=== PATIENT | male | born 1965 | race Caucasian/White ===

== ENCOUNTER 2021-04-29 06:52 | Emergency (ER) | payer BC ==
--- NOTE | 2021-04-29 07:39 | EDM.PDOC ---
ED HPI GENERAL MEDICAL PROBLEM - General Chief Complaint: ENT Problem Stated Complaint: NOSE BLEED Time Seen by Provider: 04/29/21 07:29 - History of Present Illness INITIAL COMMENTS - FREE TEXT/NARRATIVE: 56-year-old male presents the emergency room with a nosebleed. This is out of the left side. This started short time ago. The patient did have a nosebleed yesterday. Because of his nosebleeds yesterday the patient did hold his aspirin this morning. The patient is not on anticoagulation. He is treated for hypertension usually takes lisinopril 40 mg daily and he is taking his lisinopril thus far today. Patient denies any other complaints he is not have any breathing difficulties shortness of breath chest pain or chest pressure. - Related Data Allergies Allergy/AdvReac Type Severity Reaction Status Date / Time No Known Allergies Allergy Verified 04/29/21 07:23 Home Meds: Home Meds Chlorthalidone 12.5 mg PO DAILY #15 tab 04/29/21 [Rx] Cromolyn Sodium [Nasal Allergy Luckey] 2 spray NASBOTH DAILY 04/29/21 [History] lisinopriL [Lisinopril] 40 mg PO DAILY 04/29/21 [History] ED ROS ENT - Review of Systems Review Of Systems: See Below Constitutional: Reports: No Symptoms HEENT: Reports: Nosebleed Respiratory: Reports: No Symptoms Cardiovascular: Reports: No Symptoms GI/Abdominal: Reports: No Symptoms ED EXAM, ENT - Physical Exam Exam: See Below Exam Limited By: No Limitations General Appearance: Alert, No Apparent Distress, Other (Patient has a homemade packing in his left naris and he is holding a 4 x 4 underneath this.) Eye Exam: Bilateral Eye: Normal Inspection Nose: Other (Had the patient clear all clot from his nose large clot was removed from the left side. I attempted direct visualization the anterior septal and nasal mucosal region and cannot identify bleeder. This was attempted several times) Mouth/Throat: Normal Inspection, Normal Gums, Normal Lips, Normal Oropharynx, Normal Teeth, Other (He has had some blood in the posterior pharynx) Head: Atraumatic, Normocephalic Neck: Normal Inspection, Supple, Non-Tender. No: Lymphadenopathy (L), Lymphadenopathy (R) Respiratory/Chest: No Respiratory Distress, Lungs Clear, Normal Breath Sounds Cardiovascular: Regular Rate, Rhythm, No Edema, No Murmur Course - Vital Signs Last Recorded V/S: Last Vital Signs Temp 36.4 C 04/29/21 07:17 Pulse 83 04/29/21 07:17 Resp 18 04/29/21 07:17 BP 173/110 H 04/29/21 07:17 Pulse Ox 97 04/29/21 07:17 - Orders/Labs/Meds Orders: Active Orders 24 hr Category Date Time Status Tranexamic Acid [Cyklokapron] Med 04/29/21 07:45 Active 1,000 mg .XX ONETIME Medication Orders Tranexamic Acid (Tranexamic Acid 1,000 Mg/10 Ml Amp) 1,000 mg .XX ONETIME MARIZA Last Admin: 04/29/21 07:53 Dose: 1,000 mg Documented by: MARIA FERNANDA Labs: Laboratory Tests 04/29/21 04/29/21 04/29/21 Range/Units 08:02 08:02 08:02 WBC 7.17 (4.23-9.07) K/mm3 RBC 4.74 (4.63-6.08) M/mm3 Hgb 15.6 (13.7-17.5) gm/dl Hct 46.3 (40.1-51.0) % MCV 97.7 H (79.0-92.2) fl MCH 32.9 H (25.7-32.2) pg MCHC 33.7 (32.2-35.5) g/dl RDW Std Deviation 43.7 (35.1-43.9) fL Plt Count 203 (163-337) K/mm3 MPV 10.7 (9.4-12.3) fl Neut % (Auto) 53.6 (34.0-67.9) % Lymph % (Auto) 33.6 (21.8-53.1) % Labette % (Auto) 8.4 (5.3-12.2) % Eos % (Auto) 3.8 (0.8-7.0) Baso % (Auto) 0.3 (0.1-1.2) % Neut # (Auto) 3.85 (1.78-5.38) K/mm3 Lymph # (Auto) 2.41 (1.32-3.57) K/mm3 Labette # (Auto) 0.60 (0.30-0.82) K/mm3 Eos # (Auto) 0.27 (0.04-0.54) K/mm3 Baso # (Auto) 0.02 (0.01-0.08) K/mm3 PT 10.5 (9.7-12.0) SECONDS INR 0.98 APTT 27.1 (21.7-31.4) SECONDS Sodium (136-145) mEq/L Potassium (3.5-5.1) mEq/L Chloride (98-107) mEq/L Carbon Dioxide (21-32) mEq/L Anion Gap (5-15) BUN (7-18) mg/dL Creatinine (0.7-1.3) mg/dL Est Cr Clr Drug Dosing mL/min Estimated GFR (MDRD) (>60) mL/min BUN/Creatinine Ratio (14-18) Glucose (70-99) mg/dL Calcium (8.5-10.1) mg/dL Total Bilirubin (0.2-1.0) mg/dL AST (15-37) U/L ALT (16-63) U/L Alkaline Phosphatase (46-116) U/L Total Protein (6.4-8.2) g/dl Albumin (3.4-5.0) g/dl Globulin gm/dL Albumin/Globulin Ratio (1-2) Blood Type A POSITIVE Gel Antibody Screen Negative 04/29/21 Range/Units 08:02 WBC (4.23-9.07) K/mm3 RBC (4.63-6.08) M/mm3 Hgb (13.7-17.5) gm/dl Hct (40.1-51.0) % MCV (79.0-92.2) fl MCH (25.7-32.2) pg MCHC (32.2-35.5) g/dl RDW Std Deviation (35.1-43.9) fL Plt Count (163-337) K/mm3 MPV (9.4-12.3) fl Neut % (Auto) (34.0-67.9) % Lymph % (Auto) (21.8-53.1) % Labette % (Auto) (5.3-12.2) % Eos % (Auto) (0.8-7.0) Baso % (Auto) (0.1-1.2) % Neut # (Auto) (1.78-5.38) K/mm3 Lymph # (Auto) (1.32-3.57) K/mm3 Labette # (Auto) (0.30-0.82) K/mm3 Eos # (Auto) (0.04-0.54) K/mm3 Baso # (Auto) (0.01-0.08) K/mm3 PT (9.7-12.0) SECONDS INR APTT (21.7-31.4) SECONDS Sodium 142 (136-145) mEq/L Potassium 4.2 (3.5-5.1) mEq/L Chloride 106 (98-107) mEq/L Carbon Dioxide 27 (21-32) mEq/L Anion Gap 13.2 (5-15) BUN 18 (7-18) mg/dL Creatinine 1.1 (0.7-1.3) mg/dL Est Cr Clr Drug Dosing 82.72 mL/min Estimated GFR (MDRD) > 60 (>60) mL/min BUN/Creatinine Ratio 16.4 (14-18) Glucose 96 (70-99) mg/dL Calcium 8.2 L (8.5-10.1) mg/dL Total Bilirubin 1.0 (0.2-1.0) mg/dL AST 24 (15-37) U/L ALT 67 H (16-63) U/L Alkaline Phosphatase 67 (46-116) U/L Total Protein 6.9 (6.4-8.2) g/dl Albumin 3.6 (3.4-5.0) g/dl Globulin 3.3 gm/dL Albumin/Globulin Ratio 1.1 (1-2) Blood Type Gel Antibody Screen Meds: Medications Generic Name Dose Route Start Last Admin Trade Name Freq PRN Reason Stop Dose Admin Tranexamic Acid 1,000 mg 04/29/21 07:45 04/29/21 07:53 Tranexamic Acid 1,000 Mg/10 Ml Amp .XX 1,000 mg ONETIME MARIZA Administration Discontinued Medications Generic Name Dose Route Start Last Admin Trade Name Freq PRN Reason Stop Dose Admin Chlorthalidone 12.5 mg 04/29/21 12:25 Chlorthalidone 25 Mg Tab PO 04/29/21 12:26 ONETIME ONE Hydralazine HCl 2.5 mg 04/29/21 09:25 04/29/21 09:45 Hydralazine 20 Mg/Ml Sdv IVPUSH 04/29/21 09:26 2.5 mg ONETIME ONE Administration Hydralazine HCl 2.5 mg 04/29/21 10:04 04/29/21 10:10 Hydralazine 20 Mg/Ml Sdv IVPUSH 04/29/21 10:05 2.5 mg ONETIME ONE Administration Lidocaine HCl 10 ml 04/29/21 07:43 04/29/21 07:54 Lidocaine 1% 10 Ml Mdv INJECT 04/29/21 07:44 10 ml ONETIME ONE Administration Oxymetazoline HCl 2 ml 04/29/21 07:43 04/29/21 07:54 Oxymetazoline 0.05% Nasal Luckey 30 Ml Bottle .XX 04/29/21 07:44 2 ml ONETIME ONE Administration - Re-Assessments/Exams Free Text/Narrative Re-Assessment/Exam: 04/29/21 08:08 Presents to the emergency room with a nosebleed. He is little hypertensive systolics in the 170s upon arrival. We tried to clear the cotton hold direct pressure he continued to bleed. Patient normally takes aspirin and this was held today. Despite several attempts I cannot visualize the bleeder. 2 cc of Afrin 1% lidocaine and TXA were mixed in a solution these were saturated into cotton balls and placed in the left naris. At this time the and then in about 7 minutes the patient has had good relief no longer bleeding we will leave these in place a little bit longer. 04/29/21 09:00 The patient continues to do well the cotton soaked in the lidocaine TXA Afrin mixture were removed patient is not having any active bleeding at this time. We will continue to watch monitor blood pressure strongly considering addition of blood pressure medication at this point 04/29/21 10:05 Roughly 30 minutes ago the patient developed bleeding again after he got up and went to the restroom. He was retreated with lidocaine TXA and Afrin. He is doing well with this still in place. His blood pressure stayed slightly elevated he was given 2.5 mg of hydralazine with minimal change in his blood pressure at this is redosed at this time. 04/29/21 12:24 Patient is doing okay at this time anticipate discharge soon. We will start him on chlorthalidone low-dose. He will hold his aspirin. The patient had his TXA lidocaine Afrin system removed and then he promptly started bleeding. A 5.5 rapid Rhino was placed and the patient has done well with this. His blood pressure is staying elevated most recent is 163/101 we will start on low-dose chlorthalidone. Departure - Departure Time of Disposition: 12:26 Disposition: Home, Self-Care 01 Clinical Impression: Epistaxis, Hypertension - Discharge Information Prescriptions: Chlorthalidone 12.5 mg PO DAILY #15 tab Instructions: Nosebleed, Adult, [id number] Referrals: PCP,None [Primary Care Provider] - Forms: ED Department Discharge, ED Return to Work/School Form Additional Instructions: Return to the emergency room with any questions problems or worsening symptoms. Return if your nose starts bleeding heavily again. It is expected that you can have a drop here and there. Keep nasal packing in place for minimum of 48 hours. Follow-up in the clinic on Tuesday to have this reassessed you may also return to the emergency room for this. You have been started on chlorthalidone this is to help your blood pressure medicine, that you are already taking, work better. It is essential that your new healthcare providers keep an eye on your potassium as it can make this go too low. Your first dose was given here in the emergency room start this tomorrow. The prescription for this was sent electronically to [facility] in the [employer] [facility]. Sepsis Event Note (ED) - Evaluation Sepsis Screening Result: No Definite Risk - Focused Exam Vital Signs: Vital Signs Temp Pulse Resp BP Pulse Ox 04/29/21 07:17 36.4 C 83 18 173/110 H 97 - My Orders Last 24 Hours: My Active Orders 04/29/21 07:45 Tranexamic Acid [Cyklokapron] 1,000 mg .XX ONETIME - Assessment/Plan Last 24 Hours: My Active Orders 04/29/21 07:45 Tranexamic Acid [Cyklokapron] 1,000 mg .XX ONETIME
[2021-04-29] MEDS ORDERED: Lidocaine 1% 10 ML MDV INJECT ONE (07:43)
[2021-04-29] MEDS ORDERED: Oxymetazoline 0.05% Nasal Spray 30 ML Bottle ONE (07:43)
[2021-04-29] MEDS ORDERED: hydrALAZINE 20 MG/ML SDV IVPUSH ONE ×2 (09:25→10:04)
[2021-04-29] MEDS ORDERED: Chlorthalidone 25 MG Tab PO ONE (12:25)
== END 2021-04-29 13:00 | disposition home or self-care (01) ==
LOC: JD.ED 06:52
DX: R04.0 Epistaxis (principal); I10 Essential (primary) hypertension; Z79.899 Other long term (current) drug therapy
CPT/HCPCS: 30903; 36415; 80053; 85025; 85610; 85730; 86850; 86900; 86901; 96374; 99283; A9270; J0360; 30901

== ENCOUNTER 2022-06-06 10:07 | Emergency (ER) | payer BC ==
[2022-06-06] MEDS ORDERED: Sodium Chloride 0.9% 10 ML Syringe FLUSH PRN ×2 (10:27→11:21)
[2022-06-06] MEDS ORDERED: Lactated Ringers 1,000 ML IV ONE (10:47)
[2022-06-06] MEDS ORDERED: Iopamidol 755 Mg/ML 100 ML Bottle IVPUSH ONE (11:21)
[2022-06-06] MEDS ORDERED: Sodium Chloride 0.9% 100 ML IV SCH (11:30)
[2022-06-06] MEDS ORDERED: Heparin Sodium 5,000 Units/ML Vial IVPUSH ONE (11:37)
[2022-06-06] MEDS ORDERED: Heparin Sodium/D5W 25,000 UNITS/500 ML BAG IV SCH (12:45)
== END 2022-06-06 13:10 ==
LOC: JD.ED 10:07
DX: I26.02 Saddle embolus of pulmonary artery with acute cor pulmonale (principal); D68.51 Activated protein C resistance; I10 Essential (primary) hypertension; Z72.0 Tobacco use; Z79.899 Other long term (current) drug therapy; Z79.82 Long term (current) use of aspirin
CPT/HCPCS: 36415; 71045; 71275; 80053; 83880; 84484; 85025; 85610; 93005; 96374; 96376; 99285; J1644; J3490; Q9967; 93010; 99284

== ENCOUNTER 2023-04-14 18:12 | Emergency (ER) | payer BC ==
[2023-04-14 19:20] LABS: BASOPHILS PERCENT AUTO 0.4 % (0.0-1.0); EOSINOPHILS ABSOLUTE AUTO 0.3 K/mm3 (0.0-0.4); EOSINOPHILS PERCENT AUTO 3.3 % (0.0-6.0); HEMATOCRIT 43.8 % (42.0-52.0); IMMATURE GRAN ABSOLUTE AUTO 0.03 K/mm3 (0.00-0.05); IMMATURE GRAN PERCENT AUTO 0.3 % (0.0-0.4); LYMPHOCYTES ABSOLUTE AUTO 2.8 K/mm3 (1.0-4.8); LYMPHOCYTES PERCENT AUTO 31.5 % (24.0-44.0); MEAN CORPUSCULAR HEMOGLOBIN 32.7 pg (28.0-32.0); MEAN CORPUSCULAR HGB CONC 34.2 g/dl (32.0-36.0); MEAN CORPUSCULAR VOLUME 95.4 fl (83.0-99.0); MEAN PLATELET VOLUME 10.4 fl (9.4-12.4); MONOCYTES ABSOLUTE AUTO 0.7 K/mm3 (0.0-0.8); MONOCYTES PERCENT AUTO 7.5 % (0.0-8.0); NEUTROPHILS ABSOLUTE AUTO 5.1 K/mm3 (1.8-7.7); PLATELET COUNT,PLT 215 K/mm3 (150-400); RED BLOOD CELL COUNT 4.59 M/mm3 (4.52-5.90); WHITE BLOOD CELL COUNT,WBC 8.96 K/mm3 (3.9-11.3)
[2023-04-14 19:43] LABS: ALBUMIN 3.4 g/dl (3.4-5.0); ANION GAP 12.5 (5-15); BILIRUBIN TOTAL 0.7 mg/dL (0.2-1.0); BUN/CREATININE RATIO 16.2 (14-18); C-REACTIVE PROTEIN 0.6 mg/dL (<1.0); CALCIUM 8.6 mg/dL (8.5-10.1); CREATININE 1.3 mg/dL (0.7-1.3); EST CRCL DRUG DOSING (CG) 69.14 mL/min; MAGNESIUM 1.9 mg/dL (1.8-2.4); POTASSIUM,K 3.5 mEq/L (3.5-5.1); PROTEIN TOTAL,TP 6.9 g/dl (6.4-8.2)
[2023-04-14 19:52] LABS: INR 0.94; PROTHROMBIN TIME 10.1 SECONDS (9.7-12.0)
[2023-04-14 19:53] LABS: PTT,PARTIAL THROMBOPLSTIN TIME 29.2 SECONDS (21.7-31.4)
[2023-04-14] MEDS ORDERED: Iopamidol 755 Mg/ML 100 ML Bottle IVPUSH ONE (20:43)
[2023-04-14] MEDS ORDERED: Sodium Chloride 0.9% 100 ML IV SCH (21:45)
== END 2023-04-14 22:50 | disposition home or self-care (01) ==
LOC: JD.ED 18:12
DX: R79.1 Abnormal coagulation profile (principal); I10 Essential (primary) hypertension; Z79.82 Long term (current) use of aspirin; Z79.899 Other long term (current) drug therapy; Z20.822 Contact with and (suspected) exposure to COVID-19
CPT/HCPCS: 36415; 71275; 80053; 83735; 84484; 85025; 85379; 85610; 85730; 86140; 87635; 99284; J3490; Q9967; U0002